=== PATIENT | female | born 1985 | race Caucasian/White ===

== ENCOUNTER → 2020-06-29 | Day surgery (SDC) | payer OTHER ==
[~2020-06-29] MED LIST: CYCLOBENZAPRINE10 MG PO; IBUPROFEN800 M1 PO; MAXALT10 MG PO; MEDROL 4MG DOSEP4 MG PO; MOTRIN600 MG PO; NORCO 5-325 TA1 EAC1 PO; PERCOCET 5-3251 EACH PO; PRISTIQ50 MG PO; PROPRANOLOL HCL60 MG PO; RISPERDAL 0.5M0.5 MG PO; SINEQUAN10 MG PO; XANAX0.5 MG PO
[2020-06-29 08:17] LABS: HCG (URINE) SCREEN NEGATIVE (NEGATIVE)
== END | disposition home or self-care (01) ==
LOC: FAS 07:36
PROVIDERS: Obstetrics & Gynecology
DX: A63.0 Anogenital (venereal) warts (principal); D22.9 Melanocytic nevi, unspecified; E11.9 Type 2 diabetes mellitus without complications
CPT/HCPCS: 84703; J2250; J2405; J2704; J3010; J7120

== ENCOUNTER 2020-07-05 20:35 | Emergency (ER) | payer OTHER ==
[~2020-07-05 20:35] MED LIST changes: -MAXALT10 MG PO; -MEDROL 4MG DOSEP4 MG PO; -PERCOCET 5-3251 EACH PO; -PROPRANOLOL HCL60 MG PO
[2020-07-11] MEDS ORDERED: PERCOCET 5-3251 EACH PO (13:08)
[2020-07-11] MEDS ORDERED: MAXALT10 MG PO (13:09)
[2020-07-11] MEDS ORDERED: MEDROL 4MG DOSEP4 MG PO (13:09)
[2020-07-11] MEDS ORDERED: PROPRANOLOL HCL60 MG PO (13:10)
== END 2020-07-05 22:30 | disposition home or self-care (01) ==
LOC: FER 20:35
DX: T81.31XA Disruption of external operation (surgical) wound, not elsewhere classified, initial encounter (principal); F17.210 Nicotine dependence, cigarettes, uncomplicated; Z98.890 Other specified postprocedural states; Z88.6 Allergy status to analgesic agent; Z88.1 Allergy status to other antibiotic agents; Y83.6 Removal of other organ (partial) (total) as the cause of abnormal reaction of the patient, or of later complication, without mention of misadventure at the time of the procedure
CPT/HCPCS: 99283

== ENCOUNTER → 2020-07-12 | Day surgery (SDC) | payer OTHER ==
[~2020-07-12] VITALS: Ht 154.9 cm; Wt 58.2 kg
[~2020-07-12] MED LIST changes: +MAXALT10 MG PO; +MEDROL 4MG DOSEP4 MG PO; +PERCOCET 5-3251 EACH PO; +PROPRANOLOL HCL60 MG PO
[2020-07-12 09:22] LABS: HCG (URINE) SCREEN NEGATIVE (NEGATIVE)
== END | disposition home or self-care (01) ==
LOC: FAS 09:03
PROVIDERS: Obstetrics & Gynecology
DX: T81.31XA Disruption of external operation (surgical) wound, not elsewhere classified, initial encounter (principal); D07.1 Carcinoma in situ of vulva; D22.9 Melanocytic nevi, unspecified; A63.0 Anogenital (venereal) warts; F17.210 Nicotine dependence, cigarettes, uncomplicated; Z88.1 Allergy status to other antibiotic agents; Z88.8 Allergy status to other drugs, medicaments and biological substances; Z91.040 Latex allergy status; Z20.822 Contact with and (suspected) exposure to COVID-19
CPT/HCPCS: 84703; J1100; J2250; J2405; J2704; J3010; J7120; U0002

== ENCOUNTER 2020-12-22 09:35 | Emergency (ER) | payer OTHER ==
[~2020-12-22] VITALS: Ht 154.9 cm; Wt 58.1 kg
[2020-12-22 10:51] LABS: BASOPHIL 1.3 % (0-2); EOSINOPHIL 4.7 % (0-5); HCT 46.1 % (37.0-47.0); HGB 15.2 g/dl (12.5-16.0); LYMPHOCYTE 30.7 % (15-48); MCH 32.2 pg (25.0-31.0); MCV 97.7 fL (78.0-100.0); MONOCYTE 6.8 % (0-12); MPV 9.5 fL (6.0-9.5); NEUTROPHIL 56.3 % (41-80); NRBC 0; PLT 301 K/uL (150-400); RBC 4.72 M/uL (4.20-5.40); WBC 9.5 K/uL (4.0-10.5)
[2020-12-22 11:23] LABS: ALBUMIN 3.8 g/dL (3.4-5.0); BILIRUBIN - TOTAL 0.4 mg/dL (0.2-1.0); BUN/CREAT RATIO (CALC) 17.7 RATIO; CREATININE 0.62 mg/dL (0.51-0.95); GLOBULIN (CALCULATION) 3.7 g/dL; POTASSIUM 4.2 mmol/L (3.5-5.1); TOTAL PROTEIN 7.5 g/dL (6.4-8.2)
[2020-12-22 11:27] LABS: CORONAVIRUS 2019 SARS-COV-2 NEGATIVE (NEGATIVE); INFLUENZA A NAA NEGATIVE (NEGATIVE)
[2020-12-22] MEDS ORDERED: PREDNISONE 20MG20 MG PO (12:01)
[2020-12-22] MEDS ORDERED: MUCINEX1200 MG PO (12:01)
[2020-12-22] MEDS ORDERED: ATROVENT HFA12.9 GM INH (12:01)
[2020-12-22] MEDS ORDERED: TESSALON PERLE100 M1 PO (12:01)
== END 2020-12-22 12:50 | disposition home or self-care (01) ==
LOC: FER 09:35
PROVIDERS: Internal Medicine
DX: J20.9 Acute bronchitis, unspecified (principal); F17.290 Nicotine dependence, other tobacco product, uncomplicated; Z88.6 Allergy status to analgesic agent; Z88.1 Allergy status to other antibiotic agents; Z20.822 Contact with and (suspected) exposure to COVID-19
CPT/HCPCS: 36415; 71045; 80053; 84145; 85025; J2930; U0002

== ENCOUNTER 2021-09-10 01:23 | Emergency (ER) | payer OTHER ==
[~2021-09-10 01:23] MED LIST changes: +ATROVENT HFA12.9 GM INH; +MUCINEX1200 MG PO; +PREDNISONE 20MG20 MG PO; +TESSALON PERLE100 M1 PO
[2021-09-10] MEDS ORDERED: DIFLUCAN 100MG100 MG PO (01:52)
== END 2021-09-10 02:21 | disposition home or self-care (01) ==
LOC: FER 01:23
DX: T16.2XXA Foreign body in left ear, initial encounter (principal); B37.9 Candidiasis, unspecified; Z88.1 Allergy status to other antibiotic agents; Z88.6 Allergy status to analgesic agent; Z28.310 Unvaccinated for COVID-19
CPT/HCPCS: J3486